=== PATIENT | male | born 1985 | race Caucasian/White ===

== ENCOUNTER 2016-10-16 19:28 | Emergency (ER) | payer SELFPAY ==
--- NOTE | 2016-10-16 19:55 | EDM.PDOC ---
ED HPI GENERAL MEDICAL PROBLEM - General Chief Complaint: Medication Administration Stated Complaint: NEEDS INSULIN Time Seen by Provider: 10/16/16 19:45 Source of Information: Reports: Patient, RN - History of Present Illness INITIAL COMMENTS - FREE TEXT/NARRATIVE: He is from [place]. He ran out of his insulin. He takes NPH insulin 45 units sq q am and at times 10 units q pm. His HgA1C was 10 and he recently ran out of his insulin. He does not have a doctor here yet. He does not feel ill - Related Data Allergies Allergy/AdvReac Type Severity Reaction Status Date / Time No Known Allergies Allergy Verified 10/16/16 19:44 Home Meds: Home Meds Insulin Regular, Human [NovoLIN R] 45 unit SUBCUT DAILY 10/16/16 [History] Lisinopril [Zestril] 2.5 mg PO DAILY 10/16/16 [History] metFORMIN [Glucophage] 500 mg PO BIDMEALS 10/16/16 [History] Past Medical History Cardiovascular History: Denies: Heart Failure, Hypertension Endocrine/Metabolic History: Reports: Diabetes, Type II ED ROS GENERAL - Review of Systems Review Of Systems: See Below Constitutional: Denies: Fever, Chills Respiratory: Denies: Shortness of Breath, Wheezing Cardiovascular: Denies: Chest Pain GI/Abdominal: Denies: Abdominal Pain, Vomiting ED EXAM, GENERAL - Physical Exam Exam: See Below General Appearance: Alert, No Apparent Distress. No: Anxious Respiratory/Chest: No Respiratory Distress Psychiatric: Normal Affect (he states that his home blood sugars are about 200 or sometimes higher. He checks his blood sugars at home. ), Normal Mood Course - Vital Signs Last Recorded V/S: Last Vital Signs Temp 98.8 F 10/16/16 19:46 Pulse 84 10/16/16 19:46 Resp 18 10/16/16 19:46 BP 139/86 10/16/16 19:46 Pulse Ox 99 10/16/16 19:46 Departure - Departure Time of Disposition: 19:54 Disposition: Home, Self-Care 01 Condition: Good Clinical Impression: Diabetes mellitus - Discharge Information Forms: ED Department Discharge Additional Instructions: He is instructed regarding establishing care with a primary care provider. I prescribed NPH insulin as directed as well as insulin syringes and needles with refills prn
[2016-10-16 20:26] VITALS: BP 131/81
== END 2016-10-16 20:26 | disposition home or self-care (01) ==
LOC: MW.ED 19:28
DX: E11.9 Type 2 diabetes mellitus without complications (principal); I11.0 Hypertensive heart disease with heart failure; I50.9 Heart failure, unspecified; Z79.4 Long term (current) use of insulin; Z79.84 Long term (current) use of oral hypoglycemic drugs; Z79.899 Other long term (current) drug therapy
CPT/HCPCS: 82962; 99281; 99283